=== PATIENT | female | born 1960 | race Caucasian/White ===

== ENCOUNTER → 2023-12-24 15:03 | Outpatient (REF) | payer MEDICARE, BC, SELFPAY | LOC: HWRCS 15:03 | PROVIDERS: ATTENDING PHYSICIAN Nurse Practitioner; FAMILY PHYSICIAN Family Medicine | DX: R60.0 Localized edema (principal) | CPT/HCPCS: 93306 ==

== ENCOUNTER → 2024-08-03 15:56 | Outpatient (REF) | payer MEDICARE, BC, SELFPAY | LOC: HWWDC 15:56 | PROVIDERS: ATTENDING PHYSICIAN Family Medicine | DX: Z12.31 Encounter for screening mammogram for malignant neoplasm of breast (principal) | CPT/HCPCS: 77063; 77067 ==

== ENCOUNTER 2024-12-22 17:25 | Inpatient (IN) | payer MEDICARE, BC, SELFPAY ==
--- NOTE | 2024-12-22 16:13 | CON.CAR ---
Addendum entered and electronically signed by Donovan Rhodes MD 12/22/24 18:02:
64 yo female with CAD/CABG 2020, Type 1 DM is admitted following high risk nuclear stress test. She experienced chest pressure during the stress test. She is currently chest pain/pressure free at rest. Exam with RRR, no murmurs, no edema. TnI
0.014. EKG: NSR, iRBBB, anterolateral ST depression.
Chest pain. ACS/unstable angina. Threat to life. With high risk nuclear stress test. LAD territory ischemia and TID. ASA 324 mg, heparin drip. Plan for cath in AM.
Original Note:
Consultation
Consultation Request
Date/Time Consultation Requested: 12/22/2024 16:10
Date/Time Consultation Performed: 12/22/2024 16:10
Requesting Provider: ER
Performing Provider: DAKOTA Helms for Dr. Rhodes
Reason for Consultation: Unstable angina
Medical History
-
Chief Complaint: Chest pain
History of Present Illness:
Farnaz Adams is a 64-year-old female (known to Dr. Garcia, her primary crime scene investigator), with coronary artery disease (CABG x 2, HUP [address] Manzo), ischemic cardiomyopathy (with recovered LVEF), type 1 diabetes mellitus, left lower
effusion status post VATS and pleurodesis (2020), and orthostasis who presented today for outpatient cardiac stress testing. Stress testing was prompted by reports of chest discomfort while walking her dog. It would resolve with rest but return if
she continued on her walk. She reported it was a heaviness that radiated into her jaw and she would start to feel nauseous. Today she completed 1 minute and 30 seconds of the Toro protocol and Lexiscan was administered. The stress ECG was
positive for ischemia with [address] depression in the inferior lateral leads and [address] elevation in aVR that was slow to resolve in recovery. Regarding her perfusion imaging, there was ischemia in the LAD territory. Transient ischemic
dilation was also present. She was sent to the emergency department for full evaluation.
Past Medical History
Past Medical History: CAD (CABG [2020]), CHF (ICM [recovered]), HTN (with orthostasis), Hypercholesterolemia and IDDM (Type I)
Past Surgical History: Appendectomy and Cardiac (CABG [Anais, 2020])
Social History
Tobacco: Non-Smoker
Personal: Single
Living: Alone
Family History
Family History: Reviewed & Not Pertinent
Allergies / Home Medications
Allergy/AdvReac Type Severity Reaction Status Date / Time
codeine [Codeine] Allergy abdominal Verified 10/26/20 14:25
cramping
shellfish derived Allergy Hives Verified 10/26/20 16:54
dust mites and mold Allergy congestion, Uncoded 10/26/20 14:25
sneezing
hay fever Allergy nasal Uncoded 10/26/20 14:25
congestion,
headache,
lightheadedness
perfumes Allergy headache Uncoded 10/26/20 14:25
�Medication �Instructions �Recorded �Confirmed �Type
aspirin 81 mg chewable tablet 81 mg PO DAILY Blood clot 10/26/20 10/26/20 History
prevention/tx
gabapentin 100 mg capsule 200 mg PO BID Pain 10/26/20 10/26/20 History
insulin aspart U-100 100 unit/mL 6 units SC TID Diabetes 10/26/20 10/26/20 History
subcutaneous solution (Novolog
U-100 Insulin aspart)
insulin glargine 100 unit/mL 16 units SC DAILY Diabetes 10/26/20 10/26/20 History
subcutaneous solution (Lantus
U-100 Insulin)
ntwynkrls-vxo-emdx fumarate 18 1 tab PO DAILY Supplement 10/26/20 10/26/20 History
mg-FA 600 mcg-vit K 40 mcg capsule
(Multi For Her)
omega 0-ndx-kup-fish oil 300 1 ea PO DAILY Supplement 10/26/20 10/26/20 History
mg-1,000 mg capsule (Fish Oil)
atorvastatin 80 mg tablet 80 mg PO QPM #30 tabs 10/28/20 Rx
clopidogrel 75 mg tablet 75 mg PO DAILY #90 tabs 10/28/20 Rx
furosemide 20 mg tablet 20 mg PO DAILY PRN weight gain or 10/28/20 Rx
SOB #30 tabs
lisinopril 2.5 mg tablet 2.5 mg PO DAILY #30 tabs 10/28/20 Rx
metoprolol succinate 25 mg 12.5 mg (1/2 x 25 mg) PO DAILY ##30 10/28/20 Rx
tablet,extended release 24 hr
nitroglycerin 0.4 mg sublingual 0.4 mg sublingual [id number] PRN 10/28/20 Rx
tablet sob, chest pain #25 tabs
pantoprazole 40 mg tablet,delayed 40 mg PO DAILY #30 tabs 10/28/20 Rx
release
Review of Systems
-
History Source: Patient
Constitutional: Fatigue
EENT: No Symptoms
Respiratory: No Symptoms
Cardiac: No Symptoms
Abdomen/GI: No Symptoms
: No Symptoms
Musculoskeletal: No Symptoms
Skin: No Symptoms
Neurological: No Symptoms
Endocrine: No Symptoms
Hematologic/Lymphatic: No Symptoms
Physical Exam
Physical Exam
General: Well Developed, Well Nourished, No Apparent Distress and Comfortable
HEENT: Normocephalic, Anicteric and Moist Mucous Membranes
Respiratory: Clear and Non Labored Respirations
Cardiac: S1/S2 and Regular Rhythm
Breast: Deferred by me
GI: Soft, Non Tender, Non Distended and Normal Bowel Sounds
Genito-urinary: No Costovertebral Tender
Musculoskeletal: No Clubbing
Skin: Warm and Dry
Neuro: AO x 3
Hematologic/Lymphatic: No Lymphadenopathy
Psych: Calm
Impression / Plan
-
I/P: 64F with coronary artery disease (CABG x 2, HUP [address] Manzo), ischemic cardiomyopathy (with recovered LVEF), type 1 diabetes mellitus, left lower effusion status post VATS and pleurodesis (2020), and orthostasis with high risk stress
test presents with unstable angina.
Primary Gas Treater: Dr. Garcia
Unstable angina with high risk nuclear stress test
-Stress imaging with medium sized severe in intensity completely reversible perfusion defect in the mid to distal anterior wall and apex promotions representative of significant ischemia along with a medium to large size partially reversible perfusion defect
in the basal to mid inferior wall consistent with infarction with staci-infarct ischemia. TID present.
-Stress ECG positive for ischemia with [address] depression in the inferolateral leads and [address] elevation in aVR
-Continue aspirin, start heparin drip
- Currently chest pain-free, will start nitroglycerin drip if chest pain returns
-Coronary angiography in a.m.
-Echocardiogram
Coronary artery disease
-She had a CABG x 2(SIFUENTES�dLAD, SVG�ramus), by Dr. Manzo in 2020 at [facility]
-RCA left on revascularized, intraoperative course complicated by acute hypotension and VF coming off of bypass
-Continue aspirin and statin, beta-daphne was weaned off for fatigue and orthostasis
Ischemic cardiomyopathy, with recovered LVEF
-Update TTE as above
HTN, with orthostasis, follow BP
Type I DM, managed by endocrine as an outpatient, per primary
Hyperlipidemia
-On rosuvastatin 40 mg, continue
-Fasting lipid panel in a.m.
Data Reviewed
-
Medical Tests (Nuc Med, Echo etc): Report Reviewed by me
Labs: Labs Reviewed by me
Old Records: Reviewed
[2024-12-22 16:14] VITALS: BP 164/68
[2024-12-22 16:29] VITALS: BMI 23.8
--- NOTE | 2024-12-22 16:38 | ED.GENMED ---
History of Present Illness
General
Chief Complaint: Chest Pain
Source: patient and physician
Time Seen by Provider: 12/22/24 16:23
History of Present Illness
History of Present Illness:
64-year-old female with past medical history of coronary artery disease, CHF, COPD, insulin-dependent diabetes presenting to the emergency department from the [facility] where she had a failed stress test earlier this afternoon, sent
to the emergency department to ultimately be admitted for heparin and plans for cardiac catheterization tomorrow. Patient states that over the last few weeks she wanted to go off of her beta-daphne due to episodes of hypotension and shortly after
being taken off her beta-daphne she started noticing anginal symptoms with mild exercise noting that when she would walk her dog she would often get a heavy sensation in her chest that would radiate to her neck accompanied with a sensation of
nausea. Patient states that the symptoms would all shortly dissipate following rest.
Past History
Past History
ED Past Medical History: CAD, CHF, COPD and IDDM
ED Past Surgical History: Appendectomy and Cardiac
Social History
Tobacco: Non-smoker
Alcohol: None
Drug: None
Personal:
Living: alone
Review of Systems
Review of Systems
All Other Systems: ROS reviewed and negative except as documented in HPI and ROS
Phy Exam
Physical Exam
Physical Exam:
GENERAL: Alert , in no apparent distress
HEAD: NCAT
EYE: conjunctiva clear
NECK: Supple
ENT: o/p clr, mmm.
CARDIAC: Regular rate and rhythm , Systolic murmur at the apex
LUNGS: Clear breath sounds bilaterally, no acute respiratory distress, no wheezes/rales/rhonchi
NEUROLOGICAL: Alert and oriented
SKIN: Warm and dry, skin intact.
MUSCULOSKELETAL: well perfused. no edema
PSYCH: Normal and appropriate interaction.
Scores
Heart Failure Risk
Heart Failure Risk Score: Not Applicable
Heart Score for Chest Pain Patients
STEMI patient?: No
History: Highly Suspicious
ECG: Significant ST-Depression
Age: >45 - <65 years
Risk Factors: >/= 3 Risk Factors or History of CAD
Troponin: </= Normal Limit
Heart Score for Chest Pain Patients: 7
Heart Score Risk: 72.7 % MACE over next 6 weeks
Withdrawal Assessment of Alcohol
Withdrawal Assessment Completed?: Not applicable
Course
Orders/Labs/Results
Orders:
Orders
12/22/24 Dinner
Cholesterol Lowering
At Your Request: Full Participation
Cholesterol Lowering: Sodium, 2 Gram
12/22/24 16:06
Electrocardiogram (*1) Urgent
Reason for Study: Chest Pain
EKG- Treatment ONCE
12/22/24 16:23
Heparin 4,000 units IV NOW STA
Heparin Protocol- PTT Orders As Directed
PTT per Heparin protocol: -Obtain CBC and baseline PTT - if not already collected.
-Obtain PTT 6 hours from start of infusion. Then, every 6 hours until 2 consecutive
PTT's are therapeutic. Then, PTT Daily.
-With each rate change, obtain PTT every 6 hours until 2 consecutive PTT's are
therapeutic. Then, PTT Daily.
Notify MD As Directed
Notify physician if: PTT is greater than or equal to 200.
12/22/24 16:28
Complete Blood Count/With Diff Urgent
Comprehensive Metabolic Panel Urgent
Hgba1c [Glycohemoglobin (HgbA1c)] Routine
PTT Urgent
Comment: ADDON
Prothrombin Time Urgent
12/22/24 16:29
Troponin I Urgent
12/22/24 16:30
Heparin 71586 Units/250 ml 25,000 units in 250 ml IV PER PROTOCOL
Weight to be used for heparin protocol in kilograms (kg):: 66.8
Protocol:: Cardiac Tx/Acute Coronary
PTT Goal Range to be used:: PTT 73 to 111 seconds
Order type:: Initial
INITIAL Infusion Dose (UNITS/KG/hr) & then follow protocol:: 12 units/kg/hr
Infusion Dose in UNITS/hr & then follow protocol (UNITS/hr):: 800
INFUSION RATE in mL/hr & then follow protocol (mL/hr):: 8
PTT less than or equal to 64 seconds:: Increase rate by 200 units/hr (+ 2 mL/hr)
PTT 64.1 to 72.9 seconds:: Increase rate by 100 units/hr (+ 1 mL/hr)
PTT 73 to 111 seconds:: Target Range. No change in rate.
PTT 111.1 to 130.9 seconds:: Decrease rate by 100 units/hr (- 1 mL/hr)
PTT 131 to 199.9 seconds:: HOLD for 1 hr. Then decrease rate by 200 units/hr (- 2 mL/hr)
PTT greater than or equal to 200 seconds:: HOLD for 2 hrs & Notify Provider. Then decrease by 200 units/hr (-
2 mL/hr)
Lab follow-up:: Each change, PTT q6h until 2 consecutive are therapeutic. Then PTT
daily.
12/22/24 16:50
Nitroglycerin Sublingual [Nitrostat (Sublingual)] 0.4 mg SL [id number] PRN
12/22/24 16:56
Admit/Transfer Patient As Directed
Co-Sign Provider:
Level of Care: Inpatient admission
Assign to:: IVU
Physician / Group: arik
Diagnosis: acs
Reason for Hospitalization: acs
Expected length of stay greater than two midnights?: Yes
ELOS- Estimated Length of Stay in days: 2
I certify the patient meets the requirements for IP care: Yes
PRN Pain Medication Management As Directed
May give lesser potent ordered pain med per pt: Yes
preference::
Protocol:: Medication orders for pain may be administered in a
manner that supports deferring to patient preference
when the pt is:
- Requesting an ordered lesser potent pain medication.
Least to most potent pain medications are defined
as: acetaminophen < NSAID < tramadol < opioids
(morphine, oxycodone, hydromorphone).
- Requesting a lesser dose of the same medication IF
ORDERED.
- Requesting a less intrusive route of administration
if both routes are prescribed by the provider (PO <
IV).
12/22/24 16:57
Code Status As Directed
Resuscitation Status: Full Code
12/22/24 18:23
Troponin I Q6H
12/22/24 18:23
VTE Contraindication Routine
VTE Mechanical Device Contraindication: Medical Contraindication
Pharmocologic Contraindication: Medical Contraindication
Activity As Directed
Activity Level: As Tolerated
Vital Signs As Directed
Frequency: Per unit guidelines
12/23/24 00:23
Troponin I Q6H
12/23/24 06:00
Echo 2D MMode Color/Doppler Routine
Reason for Study: Unstable angina
NPO
Allow oral meds: Yes
Allow clear liquids: No
12/23/24 06:23
Troponin I Q6H
12/24/24 06:00
Complete Blood Count/No Diff Q2D
Comment: Notify MD if platelet count is <130,000 or decreases by 50% from baseline
12/26/24 06:00
Complete Blood Count/No Diff Q2D
Comment: Notify MD if platelet count is <130,000 or decreases by 50% from baseline
12/28/24 06:00
Complete Blood Count/No Diff Q2D
Comment: Notify MD if platelet count is <130,000 or decreases by 50% from baseline
12/30/24 06:00
Complete Blood Count/No Diff Q2D
Comment: Notify MD if platelet count is <130,000 or decreases by 50% from baseline
01/01/25 06:00
Complete Blood Count/No Diff Q2D
Comment: Notify MD if platelet count is <130,000 or decreases by 50% from baseline
01/03/25 06:00
Complete Blood Count/No Diff Q2D
Comment: Notify MD if platelet count is <130,000 or decreases by 50% from baseline
01/05/25 06:00
Complete Blood Count/No Diff Q2D
Comment: Notify MD if platelet count is <130,000 or decreases by 50% from baseline
01/07/25 06:00
Complete Blood Count/No Diff Q2D
Comment: Notify MD if platelet count is <130,000 or decreases by 50% from baseline
Abnormal Lab Results
12/22/24
16:28
Absolute Neuts (auto) 7.4 H 10^3/uL
(1.4-6.5)
Neutrophils % 78.6 H %
(42.2-75.2)
Lymphocytes % 13.4 L %
(20.5-51.1)
BUN 20 H mg/dl
(7-17)
Glucose 222 H mg/dl
(70-99)
AST 42 H U/L
(14-36)
12/22/24 16:28
12/22/24 16:28
Vital Signs
Initial and Last Documented VS:
Initial Vital Signs
Temp Pulse Pulse Ox
98.4 F 74 99
12/22/24 16:08 12/22/24 16:08 12/22/24 16:08
Last Documented Vital Signs
Temp Pulse Resp BP Pulse Ox
98.4 F 77 20 135/62 98
12/22/24 19:15 12/22/24 19:15 12/22/24 19:15 12/22/24 18:32 12/22/24 19:15
MDM/Problems Addressed
Differential Diagnosis Includes:
angina, NSTEMI/STEMI, less concern for PE, no concern for infection
MDM/Problems Addressed:
64-year-old female presenting to the ER for evaluation after failing stress test earlier this afternoon. Has been having anginal symptoms over the last few weeks. Chest pain-free here. Received 4 tablets of [address] to the
hospital via EMS. Per cardiology recommendation will initiate heparin now. Plan to admit to hospitalist team and cardiac catheterization tomorrow morning.
Chronic conditions affecting care: CAD
Acute Exacerbation and/or Progression of Chronic Illness: CAD
*Pulse Oximetry
Patient hypoxic: no
*EKG
Heart Rate: 71
Rate: normal
Rhythm: sinus
Ischemia: ST depression (Inferior leads, V4 through V6)
*Retanned Le[employer] Roller Interpretation
Rate: normal
Rhythm: sinus
*Critical Care Note
Total Time (30-74mins, 75-104mins- exclusive of procedures): 30
comment:
Critical care statement: A total of 30 minutes of critical care time was provided for this patient. This includes management of unstable vital signs, evaluation of the patient at bedside, reviewing the patient's pertinent medical records, discussion
with consultants, review of old EKGs and review of pertinent medical records. This time with separate from time utilized to perform the aforementioned documented procedures
Data Reviewed
Review of Other/Old Records Reveals: Labs, Records and Testing
Patient Management
Discussion with other providers: Hospitalist and E Learning Developer
Escalation/DeEscalation of care consider admission/obs:
Hospitalist team is aware and accepts for continued evaluation and treatment. Cardiology in the ER to evaluate the patient and place consultation orders/help with treatment planning
ED Attending Note
-
Portions of this chart may have been created with voice recognition software.� Occasional wrong word or��sound alike� substitutions may have occurred due to the inherent limitations of voice recognition software.
Discharge Plan
Departure
Patient Disposition: Admit
Date of Disposition: 12/22/24
Time of Disposition: 16:40
Presentation/result/management discussed w/ accepting MD/DO: Hospitalist
Discharge Problem:
Angina pectoris
Interventions
Interventions:
*Risk Screen - Suicide Last Done: 12/22/24 17:00
*General Assessment Last Done: 12/22/24 16:24
*Neglect/Abuse Screening Last Done: 12/22/24 17:00
*ED- Fall Risk Assessment Last Done: 12/22/24 17:00
*ED COVID-19 Vaccine History Last Done: 12/22/24 17:00
*Nursing Disposition Last Done: 12/22/24 18:30
ED- Cardiac Assessment Last Done: 12/22/24 16:55
Discharge Date and Time
Discharge Date/Time: 12/22/24 18:31
[2024-12-22] MEDS: HEPARIN 4000 UNITS IV (16:43)
[2024-12-22 16:44] LABS: % Basophils 0.4 % (0-2); % Immature Granulocytes 0.2 % (0-0.5); % Lymphocytes 13.4 % (20.5-51.1); % Monocytes 6.4 % (1.7-9.3); % Neutrophils 78.6 % (42.2-75.2); Absolute Eosinophils 0.1 10^3/uL (0-0.7); Absolute Lymphocytes 1.3 10^3/uL (1.2-3.4); Absolute Monocytes 0.6 10^3/uL (0.1-0.6); Absolute Neutrophils 7.4 10^3/uL (1.4-6.5); Hematocrit 38.8 % (37.0-47.0); Hemoglobin 12.8 g/dL (12.0-16.0); Mean Corpuscular Hgb 29.3 pg (27.0-31.0); Mean Corpuscular Volume 88.8 fL (81.0-99.0); Mean Platelet Volume 9.8 fL (7.4-10.4); Nucleated Red Blood Cells % 0 %; Platelet Count 213 10^3/uL (130-400); Red Blood Cell Count 4.37 10^6/uL (4.20-5.40); Red Cell Dist. Width 12.5 % (11.5-14.5); White Blood Cell Count 9.4 10^3/uL (4.8-10.8)
[2024-12-22] MEDS: HEPARIN 25000 UNITS/250 ML IV (16:44)
[2024-12-22 16:47] LABS: INR 0.91; PT 12.7 Sec (11.4-14.6)
[2024-12-22 16:49] LABS: ALT (SGPT) 32 U/L (0-35); AST (SGOT) 42 U/L (14-36); Albumin 4.1 g/dl (3.5-5.0); Alkaline Phosphatase 85 U/L (38-126); Blood Urea Nitrogen 20 mg/dl (7-17); Calcium 9.3 mg/dl (8.4-10.2); Carbon Dioxide 26 mmol/L (22-30); Chloride 107 mmol/L (98-107); Estimated Creatinine Clearance 90 ml/min; Glucose 222 mg/dl (70-99); Potassium 4.1 mmol/L (3.5-5.1); Sodium 139 mmol/L (135-145); Total Bilirubin 0.8 mg/dl (0.2-1.3); Total Protein 7.1 g/dl (6.3-8.2); eGFR > 60.00
--- NOTE | 2024-12-22 16:59 | HPS.HSE ---
Addendum entered and electronically signed by Sean Johnson MD 12/22/24 17:40:
Patient has insulin pump. Continue.
Original Note:
Family Physician
-
Family Physician:
Chief Complaint
-
Allergies
Allergy/AdvReac Type Severity Reaction Status Date / Time
codeine [Codeine] Allergy abdominal Verified 12/22/24 16:30
cramping
house dust mite Allergy congestion, Verified 12/22/24 17:02
sneezing
mold Allergy congestion, Verified 12/22/24 17:02
sneezing
pollen extracts Allergy nasal Verified 12/22/24 17:02
congestion,
headache,
lightheadedness
shellfish derived Allergy Hives Verified 12/22/24 16:30
tree and shrub pollen Allergy nasal Verified 12/22/24 17:02
congestion,
headache,
lightheadedness
perfumes Allergy headache Uncoded 12/22/24 16:30
Home Medications
aspirin 81 mg chewable tablet 81 mg PO DAILY Blood clot prevention/tx 10/26/20
gabapentin 100 mg capsule 400 mg PO BID Pain 10/26/20
insulin aspart U-100 100 unit/mL subcutaneous solution (Novolog U-100 Insulin aspart) units SC TID Diabetes 10/26/20
insulin glargine 100 unit/mL subcutaneous solution (Lantus U-100 Insulin) 16 units SC .DAILYINAM Diabetes 10/26/20
mdznchyzr-ltt-rexy fumarate 18 mg-FA 600 mcg-vit K 40 mcg capsule (Multi For Her) 1 tab PO DAILY Supplement 10/26/20
omega 9-jtl-bqs-fish oil 300 mg-1,000 mg capsule (Fish Oil) 1 ea PO DAILY Supplement 10/26/20
furosemide 20 mg tablet 20 mg PO DAILY PRN weight gain or SOB #30 tabs 10/28/20
nitroglycerin 0.4 mg sublingual tablet 0.4 mg sublingual [id number] PRN sob, chest pain #25 tabs 10/28/20
pantoprazole 40 mg tablet,delayed release 40 mg PO DAILY #30 tabs 10/28/20
acetaminophen 325 mg tablet (Tylenol) 325 mg PO Q4H PRN pain 12/22/24
metoprolol succinate 25 mg tablet,extended release 24 hr 12.5 mg PO HS 12/22/24
midodrine 2.5 mg tablet 2.5 mg PO ONCE PRN low bp 12/22/24
rosuvastatin 40 mg tablet 40 mg PO DAILY 12/22/24
tramadol 50 mg tablet 50 mg PO DAILY PRN pain 12/22/24
History of Present Illness
64-year-old female past medical history of ischemic cardiomyopathy, multivessel CAD status post CABG, type 1 diabetes, lumbar disc disease status post surgery, peripheral neuropathy, restless leg syndrome, GERD, COPD, presenting with failed stress
test earlier this afternoon. She developed chest pressure with radiation up to her neck and required medication to reverse the vasodilator. Sent to the emergency room to be admitted for plans for cardiac catheterization tomorrow. Denies symptoms
currently.
She was getting chest pressure with exertion few times over the past several months which prompted stress test. She previously stopped beta-daphne due to hypotension restarted a few months ago. Continues to have low blood pressure occasionally
with beta-daphne.
Denies smoking. Rarely drinks alcohol.
Medical History
Past Medical History
Past Medical History: Reports Other ( ischemic cardiomyopathy, multivessel CAD, type 1 diabetes, lumbar disc disease status post surgery, peripheral neuropathy, restless leg syndrome, GERD, COPD)
Past Surgical History: Reports None
Social History
Tobacco: Non-smoker
Alcohol: None
Drug: None
Family History
Family History: Not pertinent
Allergies / Home Medications
Allergies reflects when Allergies were last updated in [employer].
Home Medications with original date entered in [employer]
Allergy/Medication List:
Allergies
Allergy/AdvReac Type Severity Reaction Status Date / Time
codeine [Codeine] Allergy abdominal Verified 12/22/24 16:30
cramping
shellfish derived Allergy Hives Verified 12/22/24 16:30
dust mites and mold Allergy congestion, Uncoded 12/22/24 16:30
sneezing
hay fever Allergy nasal Uncoded 12/22/24 16:30
congestion,
headache,
lightheadedness
perfumes Allergy headache Uncoded 12/22/24 16:30
Home Medications
aspirin 81 mg chewable tablet 81 mg PO DAILY Blood clot prevention/tx 10/26/20
gabapentin 100 mg capsule 200 mg PO BID Pain 10/26/20
insulin aspart U-100 100 unit/mL subcutaneous solution (Novolog U-100 Insulin aspart) 6 units SC TID Diabetes 10/26/20
insulin glargine 100 unit/mL subcutaneous solution (Lantus U-100 Insulin) 16 units SC DAILY Diabetes 10/26/20
qxqwcixjt-yuv-fxiz fumarate 18 mg-FA 600 mcg-vit K 40 mcg capsule (Multi For Her) 1 tab PO DAILY Supplement 10/26/20
omega 3-vqq-thi-fish oil 300 mg-1,000 mg capsule (Fish Oil) 1 ea PO DAILY Supplement 10/26/20
atorvastatin 80 mg tablet 80 mg PO QPM #30 tabs 10/28/20
clopidogrel 75 mg tablet 75 mg PO DAILY #90 tabs 10/28/20
furosemide 20 mg tablet 20 mg PO DAILY PRN weight gain or SOB #30 tabs 10/28/20
lisinopril 2.5 mg tablet 2.5 mg PO DAILY #30 tabs 10/28/20
metoprolol succinate 25 mg tablet,extended release 24 hr 12.5 mg (1/2 x 25 mg) PO DAILY ##30 10/28/20
nitroglycerin 0.4 mg sublingual tablet 0.4 mg sublingual [id number] PRN sob, chest pain #25 tabs 10/28/20
pantoprazole 40 mg tablet,delayed release 40 mg PO DAILY #30 tabs 10/28/20
Review of Systems
-
History Source: Patient
A 12 point ROS was completed and negative except as noted: Yes
Constitutional: Reports No Symptoms
EENT: Reports No Symptoms
Respiratory: Reports See HPI
Cardiac: Reports See HPI
Abdomen/GI: Reports No Symptoms
: Reports No Symptoms
Musculoskeletal: Reports No Symptoms
Skin: Reports No Symptoms
Neurological: Reports No Symptoms
Endocrine: Reports No Symptoms
Hematologic/Lymphatic: Reports No Symptoms
Psych: Reports No Symptoms
Physical Exam
Vital Signs
Vital Signs
Temp Pulse Resp BP Pulse Ox
98.4 F 73 15 164/68 100
12/22/24 16:08 12/22/24 16:30 12/22/24 16:30 12/22/24 16:14 12/22/24 16:30
Physical Exam
General: Well Developed, Well Nourished and No Apparent Distress
HEENT: NormoCephalic, Moist mucous membranes and Atraumatic
Respiratory: Clear
Cardiac: S1/S2 and Regular Rhythm; No Murmur or Rub
GI: Soft, Non Tender, Non Distended and Normal Bowel Sounds; No Organomegaly
Rectal: Deferred by Provider
Musculoskeletal: No Clubbing, No Cyanosis and No Edema
Skin: No Rash
Neuro: Nonfocal/grossly intact
Laboratory Results
-
12/22/24 16:28
12/22/24 16:28
Laboratory Results
PT 12.7 Sec (11.4-14.6) 12/22/24 16:28
INR 0.91 12/22/24 16:28
Total Bilirubin 0.8 mg/dl (0.2-1.3) 12/22/24 16:28
AST 42 U/L (14-36) H 12/22/24 16:28
ALT 32 U/L (0-35) 12/22/24 16:28
Alkaline Phosphatase 85 U/L (38-126) 12/22/24 16:28
Data Reviewed
-
Lab Data: Labs Reviewed by me
Old Records: Reviewed
Impression/Plan
-
IMPRESSION:
PLAN:
# Stable angina
# History of multivessel CAD s/p CABG 2020
-EKG shows normal sinus rhythm, incomplete right bundle branch block, T wave inversions in lateral leads
-No chest pain currently
- Continue aspirin
-Check A1c and lipid panel,
- Heparin drip
-Check echo
- Cardiology consulted
- N.p.o. past midnight for possible cardiac catheterization tomorrow
- As needed nitroglycerin for chest pain as needed
Ischemic cardiomyopathy
- Continue lisinopril
Type 1 diabetes
- Continue Lantus 16 units,
- Insulin sliding scale
Lumbar disc disease status post surgery
Peripheral neuropathy
- Continue gabapentin
Restless leg syndrome
GERD
- Continue Protonix
COPD
Full code
DVT prophylaxis�heparin drip
Cardiac diet, n.p.o. past midnight
[2024-12-22 17:00] VITALS: BP 166/65
[2024-12-22 17:01] LABS: Troponin I 0.014 ng/ml
[2024-12-22 18:00] VITALS: BP 142/83
--- NOTE | 2024-12-22 18:06 | EDRN ---
pt arrives to ER from home with an existing insulin pump and dextrose monitor attached to her person. per admitting hospitalist Dr Johnson verbal order, the pt can continue managing her own insulin pump while in . The pt stated she only takes
Novolog and Lantus SUBQ insulin IF HER INSULIN PUMP FAILS. otherwise her insulin pump stays on 25/02.
[2024-12-22 18:26] LABS: APTT 29.3 Sec (23.4-35.0)
[2024-12-22 18:32] VITALS: BP 135/62
[2024-12-22 18:39] VITALS: BMI 23.6
[2024-12-22 18:52] LABS: Glucose - Point of Care 205 mg/dl (70-99)
--- NOTE | 2024-12-22 19:27 | PTCARENOTE ---
Received pt from the ED at 1830. Pt on a heparin drip at 8 ml/hr, that was started in the ED. VSS. Pt denies any chest pain. Oriented pt to pt's room and IVU. Discussed plan for cardiac cath in am and NPO after midnight. Pt w/ own insulin
pump. Bedside accu check done, documentation of pt's blood sugar checks and insulin dosings on bedside worksheet.
[2024-12-22 20:20] VITALS: BP 130/60
[2024-12-22 21:02] VITALS: BMI 23.6
[2024-12-22 21:08] LABS: Troponin I 0.016 ng/ml
[2024-12-22 22:48] VITALS: BP 128/52
[2024-12-22 23:04] LABS: Glucose - Point of Care 272 mg/dl (70-99)
[2024-12-22] MEDS: PATIENT'S OWN INSULIN PUMP 0.75 UNITS SC (23:22)
[2024-12-22] MEDS: CRESTOR 40 MG PO (23:23)
[2024-12-22] MEDS: TOPROL XL 12.5 MG PO (23:23)
[2024-12-22] MEDS: NEURONTIN 300 MG PO (23:23)
[2024-12-23 00:10] LABS: APTT 98.3 Sec (23.4-35.0)
[2024-12-23 00:18] LABS: Troponin I 0.018 ng/ml
--- NOTE | 2024-12-23 00:29 | PTCARENOTE ---
Assumed care of the pt @ 1900. Pt is AAOx3 SR on the monitor VSS denies CP. Heparin gtt infusing @ 800 units/HR. Plan of care updated with pt. Call cui within reach.
[2024-12-23 02:57] VITALS: BP 120/54
[2024-12-23 06:00] VITALS: BMI 23.3
[2024-12-23 06:17] LABS: APTT 80.2 Sec (23.4-35.0)
[2024-12-23 06:27] LABS: HDL Cholesterol 67 mg/dl; LDL Cholesterol, Calculated 50 mg/dl; Total Cholesterol 127 mg/dl (50-199); Triglyceride 54 mg/dl (10-149); Very Low Density Lipoprotein 10 mg/dl (0-30)
[2024-12-23 06:39] LABS: Troponin I 0.021 ng/ml
--- NOTE | 2024-12-23 07:34 | W.PN.HOSP.TC ---
Today's Communication/Plan
-
NPO after midnight for cardiac cath tomorrow
Continue Heparin Drip
Assessment / Plan
Assessment / Plan
Physical Exam
General: Well Developed, Well Nourished and No Apparent Distress
HEENT: NormoCephalic, Moist mucous membranes and Atraumatic
Respiratory: Clear
Cardiac: S1/S2 and Regular Rhythm; No Murmur or Rub
GI: Soft, Non Tender, Non Distended and Normal Bowel Sounds
Musculoskeletal: No Cyanosis and No Edema
Skin: Warm. Dry.
Neuro: Nonfocal/grossly intact
Assessment/Plan
64-year-old female past medical history of ischemic cardiomyopathy, multivessel CAD status post CABG, type 1 diabetes, lumbar disc disease status post surgery, peripheral neuropathy, restless leg syndrome, GERD, COPD, presenting with failed stress
test earlier this afternoon. She developed chest pressure with radiation up to her neck and required medication to reverse the vasodilator. Sent to the emergency room to be admitted for plans for cardiac catheterization tomorrow. Denies symptoms
currently. She was getting chest pressure with exertion few times over the past several months which prompted stress test. She previously stopped beta-daphne due to hypotension restarted a few months ago. Continues to have low blood pressure
occasionally with beta-daphne. Denies smoking. Rarely drinks alcohol. Patient has insulin pump. Continue.
# Stable angina
# History of multivessel CAD s/p CABG [address] Manzo
# Known nonrevascularized RCA
- Patient failed stress test 12/22/24 and started on heparin drip
- Continue aspirin
- HbA1c 7.8% and lipid panel LDL 50
- Continue Heparin drip
- Echo with normal left ventricular systolic function; left ventricular ejection fraction 50-55%; basal to mid inferior hypokinesis (which is new); no significant valve disease.
- Cardiology consulted
- N.p.o. past midnight for cardiac catheterization tomorrow
- As needed nitroglycerin for chest pain as needed
Ischemic cardiomyopathy
- Continue lisinopril
Type 1 diabetes
- On insulin pump
- Appreciate Diabetes PULP OPERATOR
Lumbar disc disease status post surgery
Peripheral neuropathy
- Continue gabapentin
Restless leg syndrome
GERD
- Continue Protonix
COPD
Full code
DVT prophylaxis�heparin drip
Cardiac diet, n.p.o. past midnight
Anticipated Discharge: > 48 hours
Subjective/Interval History
-
Date of Service: December 23, 2024
Patient was seen and examined. She denied any chest pain or shortness of breath.
Objective Data
-
Labs:
Laboratory Results
12/22/24 12/23/24
23:40 05:38
APTT 98.3 H 80.2 H
Vital Signs:
Vital Signs
Temp Pulse Resp BP Pulse Ox
98.8 F 67 16 120/54 99
12/23/24 02:58 12/23/24 02:58 12/23/24 02:58 12/23/24 02:57 12/23/24 02:58
[2024-12-23] MEDS: LOW STRENGTH ASPIRIN 81 MG PO (08:14)
--- NOTE | 2024-12-23 08:14 | PN.DE.MGMTRT ---
Insulin Management
- -
12/23/2024 Diabetes Management Consult - Patient with insulin pump
Patient admitted 12/22 after failed stress test @ [facility], c/o chest pain. PMH CAD, CHF, COPD, diabetes. Prior to admission was using OmniPod 5 with DexCom insulin pump.
Patien tis awake alert and oriented resting in bed able to discuss diabetes management. History of diabetes 47 years, sees Dr. Maikol mcgill @ [facility]. Patient is able to continue to use pump while inpatient, in auto mode. Pump settings:
Basal .6 for 24 hours, 14.4 units total
I:CHO ratio 8.7
Sensitivity 50
Active insulin 4.5 hours.
Discussed with nurse
Will follow
Diabetes History
- -
Type of Diabetes: 1
Pre-Admission Diabetes Regimen
12/22/24
16:28
Creatinine 0.6
Insulin Pump Settings
IP Diabetes Regimen
12/22/24 12/22/24 12/22/24
16:28 18:50 23:03
Glucose 222 H
POC Glucose 205 H 272 H
Patient Education
[2024-12-23] MEDS: NEURONTIN 300 MG PO ×2 (08:15→21:19)
[2024-12-23] MEDS: PROTONIX 40 MG PO (08:15)
[2024-12-23] MEDS: THERAGRAN 1 TABLET PO (08:15)
[2024-12-23 08:16] VITALS: BP 116/57
[2024-12-23 08:26] LABS: Glucose - Point of Care 115 mg/dl (70-99)
--- NOTE | 2024-12-23 08:29 | W.PN.CD ---
Today's Communication / Plan
-
Patient with new exertional angina. Known history of multivessel coronary artery disease with coronary artery bypass grafting x [address] Manzo. Patient with known nonrevascularized RCA.
Stable overnight without angina
Continue IV heparin
Plan for cardiac catheterization. This includes coronary angiography and imaging of grafts. Per notes h/o CABG x 2(SIFUENTES�dLAD, SVG�ramus)
Impression / Plan
-
I/P: 64F with coronary artery disease (CABG x 2, [facility] [address] Manzo), ischemic cardiomyopathy (with recovered LVEF), type 1 diabetes mellitus, left lower effusion status post VATS and pleurodesis (2020), and orthostasis with high risk stress
test presents with unstable angina.
Primary Registered Respiratory Therapist: Dr. Garcia
Unstable angina with high risk nuclear stress test
- known CAD /CABG and nonrevascularized RCA
-Stress imaging with medium sized severe in intensity completely reversible perfusion defect in the mid to distal anterior wall and apex retail representative of significant ischemia along with a medium to large size partially reversible perfusion defect
in the basal to mid inferior wall consistent with infarction with staci-infarct ischemia. TID present.
-Stress ECG positive for ischemia
-Continue aspirin, start heparin drip
-Coronary angiography 12/23/24
-Echocardiogram
Coronary artery disease
-She had a CABG x 2(SIFUENTES�dLAD, SVG�ramus), by Dr. Manzo in 2020 at [facility]
-RCA left on revascularized, intraoperative course complicated by acute hypotension and VF coming off of bypass
-Continue aspirin and statin, beta-daphne was weaned off for fatigue and orthostasis
Ischemic cardiomyopathy, with recovered LVEF
-Update TTE as above
HTN, with orthostasis, follow BP
Type I DM, managed by endocrine as an outpatient, per primary
Hyperlipidemia
-On rosuvastatin 40 mg, continue
-Fasting lipid panel in a.m.
Physical Exam
Vital Signs/Labs
Vital Signs
Temp Pulse Resp BP Pulse Ox
97.8 F 67 16 120/54 100
12/23/24 08:17 12/23/24 02:58 12/23/24 08:17 12/23/24 02:57 12/23/24 08:17
12/22/24 12/23/24 12/24/24
06:59 06:59 06:59
Actual Weight 65.4 kg
12/22/24 16:28
12/22/24 16:28
PT 12.7 Sec (11.4-14.6) 12/22/24 16:28
INR 0.91 12/22/24 16:28
APTT 80.2 Sec (23.4-35.0) H 12/23/24 05:38
Triglycerides 54 mg/dl (10-149) 12/23/24 05:38
LDL Cholesterol, Calc 50 mg/dl 12/23/24 05:38
VLDL Cholesterol, Calc 10 mg/dl (0-30) 12/23/24 05:38
HDL Cholesterol 67 mg/dl 12/23/24 05:38
LAB Results
12/22/24 12/22/24 12/22/24
16:29 20:32 23:40
Troponin I 0.014 0.016 0.018
12/23/24
05:38
Troponin I 0.021
Physical Exam
Constitutional: No acute distress
Cardiovascular: Rhythm & rate is regular
Respiratory: Wheeze Absent and Rhonchi Absent
GI: Soft
Other: Other (no edema)
Data Reviewed
-
Date of Service: December 23, 2024
Medical Decision Making: Reviewed Test Results
EKG: Report Reviewed by me
Medical Tests (PFT, Pathology etc): Report Reviewed by me
Labs: Labs Reviewed by me
[2024-12-23] MEDS: PT'S OWN INSULIN PUMP - NovoLOG SC ×4 (08:35→22:53)
[2024-12-23 08:52] LABS: Glycohemoglobin (HgbA1c) 7.8 % (4.0-5.6)
[2024-12-23] MEDS: PATIENT'S OWN INSULIN PUMP SC (09:31)
[2024-12-23 12:46] LABS: Glucose - Point of Care 132 mg/dl (70-99)
[2024-12-23 13:33] VITALS: BP 134/57
--- NOTE | 2024-12-23 13:59 | CM ---
CM following for DC planning needs.
Met w/ patient at bedside to complete initial assessment. Mother, brother presented while I was there as well.
Pt. resides alone in a private ranch style home. She is functionally indep. w/ ADLs, mobility without the use of any assisted device.
Pt. does have a SPC in the home but does not utilize.
Pt. 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
Pt. has RX plan and uses [facility] in [place] for prescription needs.
Antic. DC plan is for home, no needs.
CM to follow closely.
[2024-12-23 16:11] VITALS: BP 112/55
--- NOTE | 2024-12-23 17:20 | PTCARENOTE ---
Pt cath cancelled for today due to emergent caths coming in to quality assurance qa lab technician, she will be going for cardiac cath tomorrow.
--- NOTE | 2024-12-23 17:42 | W.PN.UPDATE ---
Addendum entered and electronically signed by Adam Thomas MD 12/23/24 17:50:
procedure and risks reviewed and consent signed.
Original Note:
Update Note
Progress Note Update
Patient reassessed. Currently comfortable no issues with chest discomfort today. Patient's cardiac catheterization being rescheduled for tomorrow. Multiple emergencies and multiple STMIs in Photo Equipment Technician have impacted the schedule and after further
discussion with patient and interventional cardiology decision was made to proceed with cardiac catheterization tomorrow
[2024-12-23 18:11] LABS: Glucose - Point of Care 110 mg/dl (70-99)
[2024-12-23] MEDS: CRESTOR 40 MG PO (18:15)
[2024-12-23 21:06] VITALS: BP 124/69
[2024-12-23 21:13] LABS: Glucose - Point of Care 170 mg/dl (70-99)
[2024-12-23] MEDS: TOPROL XL 12.5 MG PO (21:19)
[2024-12-23 22:47] VITALS: BP 102/60
--- NOTE | 2024-12-23 23:48 | PTCARENOTE ---
Assumed care of the pt @ 1900. Pt up in chair talking with a friend. SR on the monitor VSS Hep gtt infusing 800 units/HR. Denies CP NPO after mn for Cath procedure tomorrow. Call cui within reach.
[2024-12-24] VITALS (15 sets, daily range): BP systolic 90–156; BP diastolic 40–106; PULSE 70; BMI 23.2
[2024-12-24] MEDS: HEPARIN 25000 UNITS/250 ML IV (00:15)
[2024-12-24 05:09] LABS: Hematocrit 35.4 % (37.0-47.0); Hemoglobin 11.7 g/dL (12.0-16.0); Mean Corp Hgb Conc. 33.1 g/dL (33.0-37.0); Mean Corpuscular Hgb 29.4 pg (27.0-31.0); Mean Corpuscular Volume 88.9 fL (81.0-99.0); Mean Platelet Volume 9.7 fL (7.4-10.4); Platelet Count 200 10^3/uL (130-400); Red Blood Cell Count 3.98 10^6/uL (4.20-5.40); Red Cell Dist. Width 12.5 % (11.5-14.5); White Blood Cell Count 6.3 10^3/uL (4.8-10.8)
[2024-12-24 05:24] LABS: APTT 103.9 Sec (23.4-35.0)
[2024-12-24 05:40] LABS: Troponin I 0.014 ng/ml
[2024-12-24 05:47] LABS: ALT (SGPT) 24 U/L (0-35); AST (SGOT) 31 U/L (14-36); Albumin 3.6 g/dl (3.5-5.0); Alkaline Phosphatase 67 U/L (38-126); Blood Urea Nitrogen 26 mg/dl (7-17); Calcium 9.7 mg/dl (8.4-10.2); Carbon Dioxide 26 mmol/L (22-30); Chloride 110 mmol/L (98-107); Estimated Creatinine Clearance 67 ml/min; Glucose 115 mg/dl (70-99); Magnesium 2.2 mg/dl (1.6-2.3); Potassium 3.7 mmol/L (3.5-5.1); Sodium 140 mmol/L (135-145); Total Bilirubin 0.5 mg/dl (0.2-1.3); Total Protein 6.4 g/dl (6.3-8.2); eGFR > 60.00
--- NOTE | 2024-12-24 06:48 | W.PN.CD ---
Today's Communication / Plan
-
Cardiac catheterization today to clarify coronary anatomy.
Impression / Plan
-
I/P: 64F with coronary artery disease s/p CABG x 2 (SIFUENTES to LAD, SVG to RI) @ [facility] [address] Manzo, ischemic cardiomyopathy (with recovered LVEF), type 1 diabetes mellitus, left lower effusion status post VATS and pleurodesis (2020), and
orthostasis admitted after high risk stress test (chest pressure during test, LAD ischemia/TIA).
Primary Regional Agronomist: Dr. Garcia
#Unstable angina with high risk nuclear stress test
-Acute.
-Known CAD /CABG and nonrevascularized RCA.
-Stress imaging with medium sized severe in intensity completely reversible perfusion defect in the mid to distal anterior wall and apex sales development representative of significant ischemia along with a medium to large size partially reversible perfusion defect
in the basal to mid inferior wall consistent with infarction with staci-infarct ischemia. TID present.
-Stress ECG positive for ischemia.
-Troponin negative.
-Echocardiogram shows new inferior hypokinesis, new since 2023.
-Plan for cardiac catheterization/ad hoc PCI.
#Coronary artery disease
-Chronic, progressive.
-She had a CABG x 2(SIFUENTES�dLAD, SVG�ramus), by Dr. Manzo in 2020 at [facility].
-RCA left un-revascularized, intraoperative course complicated by acute hypotension and VF coming off of bypass.
-Continue aspirin and statin, beta-daphne was weaned off for fatigue and orthostasis.
-Cath as above.
#Ischemic cardiomyopathy with recovered LVEF
-Chronic.
-Updated TTE shows new inferior hypokinesis with preserved systolic function.
#HTN with orthostasis
-Chronic, stable.
-Follow BP.
-Remains on metoprolol. Currently not requiring midodrine.
#Type I DM
-Chronic, stable.
-Managed by endocrine as an outpatient, per primary.
#Hyperlipidemia
-Chronic, stable.
-Total cholesterol = 127, LDL = 50, HDL = 67, Triglycerides = 54.
-Continue rosuvastatin 40 mg.
Subjective/Interval History:
Chest pain free overnight.
DATA:
Regadenoson SPECT, 12/22/2024:
CONCLUSION:
Markedly abnormal study highly suggestive of significant multivessel coronary artery disease.
The Stress ECG is Positive for Ischemia after Lexiscan administration with 2.[address] depression in the inferolateral leads and 1.[address] elevation in aVR, slow to resolve in recovery.
Patient experienced persistent chest pressure (6/10) with Lexiscan and nausea, replicating testing indication.
There was a medium-sized severe in intensity, completely reversible perfusion defect in the mid to distal anterior wall and apex sales development representative of significant ischemia. There was also a medium to large size, severe in intensity, partially reversible
perfusion defect in the basal to mid inferior wall consistent with infarction with staci-infarct ischemia.
Transient ischemic dilation is present visually and with an elevated ratio of 1.24.
Systolic function is normal. The ejection fraction is 56% with basal to distal inferior/inferoseptal hypokinesis.
Overall, high risk study.
No previous study available for comparison.
Transthoracic Echocardiogram, 12/23/2024:
CONCLUSIONS
Normal left ventricular systolic function. Left ventricular ejection fraction
is 50-55%.
Basal to mid inferior hypokinesis.
No significant valve disease.
Compared to 12/24/23: inferior hypokinesis is new.
Physical Exam
Vital Signs/Labs
Vital Signs
Temp Pulse Resp BP Pulse Ox
36.4 C 67 18 135/72 97
12/24/24 04:49 12/24/24 04:49 12/24/24 04:49 12/24/24 04:48 12/24/24 04:49
12/22/24 12/23/24 12/24/24
11:59 11:59 11:59
Actual Weight 65.4 kg 65.3 kg
12/24/24 04:53
12/24/24 04:53
PT 12.7 Sec (11.4-14.6) 12/22/24 16:28
INR 0.91 12/22/24 16:28
APTT 103.9 Sec (23.4-35.0) H 12/24/24 04:53
Magnesium 2.2 mg/dl (1.6-2.3) 12/24/24 04:53
Triglycerides 54 mg/dl (10-149) 12/23/24 05:38
LDL Cholesterol, Calc 50 mg/dl 12/23/24 05:38
VLDL Cholesterol, Calc 10 mg/dl (0-30) 12/23/24 05:38
HDL Cholesterol 67 mg/dl 12/23/24 05:38
LAB Results
12/22/24 12/22/24 12/22/24
16:29 20:32 23:40
Troponin I 0.014 0.016 0.018
12/23/24 12/23/24 12/23/24
00:23 05:38 17:45
Troponin I Cancelled 0.021 Cancelled
12/24/24
04:53
Troponin I 0.014
Physical Exam
Constitutional: No acute distress and Comfortable
EENT: Anicteric and Moist mucous membranes
Cardiovascular: Rhythm & rate is regular, Pedal edema is absent, JVD pressure is normal, S1S2 is normal and Murmur/rub/gallop absent
Respiratory: Respiratory effort normal, Lungs clear to auscul., Wheeze Absent, Crackles Absent and Rhonchi Absent
GI: Soft, Distention absent, Flat, Non tender and Normal bowel sounds
Neuro/Psych: AO x 3
Data Reviewed
-
Date of Service: December 24, 2024
Medical Decision Making: Reviewed Test Results, Independent Historian Assessment and Test Interpretation
EKG: Tracing Personally Visualized and interpreted and Report Reviewed by me
Echo: Report Reviewed by me
X-Ray/CT/US/MRI/NUC/PET: Image Personally Visualized and interpreted and Report Reviewed by me
Medical Tests (PFT, Pathology etc): Report Reviewed by me
Labs: Labs Reviewed by me
Old Records: Reviewed
[2024-12-24] MEDS: LOW STRENGTH ASPIRIN 81 MG PO (06:52)
--- NOTE | 2024-12-24 08:04 | ITS.CL.CATH ---
Bone Tender - Catheterization
Cardiac Catheterization
Procedure Report:
CARDIAC CATHETERIZATION REPORT
Date of Procedure: 12/24/2024
Referring: Adam Thomas M.D.
INDICATION: Chest pain, high risk stress test, known coronary artery disease status post CABG.
PROCEDURE:
1. Left heart catheterization.
2. Coronary angiography.
3. Bypass angiography.
A total of 16 minutes of procedural/moderate sedation was utilized. An independent medical clerk was present to assist with and help manage the patient's level of consciousness and physiologic status.
ACCESS:
1. 6 [place] left radial artery using modified Seldinger technique.
CATHETERS:
1. 5 [place] OMI.
2. 5 [place] JR4.
3. 5 [place] JL 3.5.
HEMODYNAMIC DATA
Weight (kg): 64.9
AO (s/d/x, mmHg): 136/59/91
LV (s/x mmHg): 137/12 (A wave to 24)
LEFT VENTRICULOGRAPHY: Not performed.
CORONARY ANGIOGRAPHY
Dominance: Right.
Left Main: Normal size, trifurcating vessel. There is a 50-60% lesion at the distal margin.
LAD: Small size vessel giving rise to several small diagonals. The vessel is diffusely diseased and chronically occluded in its midportion. The distal vessel is supplied by patent SIFUENTES graft. There is a 30-40%, smooth lesion in the LAD
immediately distal to the SIFUENTES anastomosis.
Ramus: Small to medium size vessel that is chronically totally occluded at its origin. The vessel supplied by patent vein graft. Collaterals are visible to the dRCA.
Circumflex: Relatively small, nondominant vessel giving rise to 1 small obtuse marginal before terminating as a left posterolateral branch. There is an 80% lesion in the ostium of the vessel. The proximal vessel is diffusely diseased with a 90%
lesion in the proximal circumflex immediately proximal to the origin of the first obtuse marginal. The diameter of the vessel is approximately 1.5 mm.
RCA: Small size, dominant vessel that is chronically totally occluded in its midportion. The distal vessel is supplied by collaterals from the LAD/RI.
BYPASS GRAFT ANGIOGRAPHY
SIFUENTES to LAD: Normal size graft with end-to-side anastomosis to the distal LAD. There is no evidence of stenosis or graft degeneration.
SVG to RI: Normal size graft with end-to-side anastomosis to the mid ramus. There is no evidence of stenosis or graft degeneration.
INTERVENTION(S)
None.
Closure Device: Vascular band.
Radiation (mGy): 237.70
DAP (cm2.Gy): 16.3603
Fluoroscopy time (minutes): 6.9
CONCLUSIONS
1. Right dominant circulation with severe diffuse coronary artery disease status post two-vessel bypass. There is a 50-60% lesion in the distal margin of the left main coronary artery, a chronic total occlusion of the RCA, ostial ramus and the mid
LAD, an 80% lesion in the ostium of the small circumflex followed by diffusely diseased proximal circumflex, needing and 90% lesion proximal to the origin of OM1 with a patent SIFUENTES to LAD revealing a smooth 30-40% distal LAD lesion after the SIFUENTES
anastomosis and a patent SVG to ramus intermedius.
2. Normal filling pressures (LVEDP = 12 mmHg at 64.9 kg) with evidence of diastolic dysfunction (A wave to 24 mmHg).
RECOMMENDATIONS:
1. Expectant management after cardiac catheterization via left radial approach.
2. Limited weight bearing on the left wrist for one week.
3. Given the severe, diffuse nature of the left main and circumflex coronary disease and the relatively small vessels combined with the potential for compromise of remaining LAD circulation, the decision was made to opt for medical management,
beginning with isosorbide mononitrate.
4. If the patient were to completely fail medical management, we could consider an extremely high risk PCI of the circumflex back into the left main, though there is significant concern for vessel mismatch and we would be jailing the LAD which
still contains a significant amount of septal perfusion in spite of its mid vessel SKIP TENDER.
5. Maintain aggressive secondary prevention with high-dose, high potency statin. Her LDL is at goal.
6. OMT/GDMT as hemodynamics will tolerate.
Copy to: Carol Garcia M.D., Miguel Handy D.O., Kris Manzo M.D.
Jefferosn Melendez DO, FACC, FACP
--- NOTE | 2024-12-24 08:47 | PTCARENOTE ---
received patient this am , she was in the laboratory development technician, patient returned from laboratory development technician with left R band intact, distal pulse palpable, monitor shows NSR, VSS. IVF @ 98cc/hr as ordered. patient has her own insulin pump, worksheet at bedside.
--- NOTE | 2024-12-24 08:52 | PN.DE.MGMTRT ---
Insulin Management
- -
12/24/2024 Diabetes Management Consult Follow up - Patient with insulin pump
Patient admitted 12/22 after failed stress test @ [facility], c/o chest pain. PMH CAD, CHF, COPD, diabetes. Prior to admission was using OmniPod 5 with DexCom insulin pump.
Patient is awake alert and oriented resting in bed able to discuss diabetes management. History of diabetes 47 years, sees Dr. Maikol mcgill @ [facility]. Patient is able to continue to use pump while inpatient, in auto mode.
Glucose range 110 to 170, will make no change to pump settings.
Pump settings:
Basal .6 for 24 hours, 14.4 units total
I:CHO ratio 8.7
Sensitivity 50
Active insulin 4.5 hours.
Discussed with nurse
Will follow
Diabetes History
- -
Type of Diabetes: 1
Pre-Admission Diabetes Regimen
12/24/24
04:53
Creatinine 0.8
Lab Results
Hemoglobin A1c 7.8 % (4.0-5.6) H 12/22/24 16:28
Insulin Pump Settings
IP Diabetes Regimen
12/23/24 12/23/24 12/23/24
12:45 18:10 21:11
Glucose
POC Glucose 132 H 110 H 170 H
12/24/24
04:53
Glucose 115 H
POC Glucose
Meal type: Breakfast
Patient Education
[2024-12-24] MEDS: IMDUR (EXTENDED RELEASE) 30 MG PO (09:01)
[2024-12-24] MEDS: PROTONIX 40 MG PO (09:01)
[2024-12-24] MEDS: NEURONTIN 300 MG PO (09:01)
[2024-12-24] MEDS: THERAGRAN 1 TABLET PO (09:01)
[2024-12-24] MEDS: PT'S OWN INSULIN PUMP - NovoLOG 6 UNIT SC (10:10)
--- NOTE | 2024-12-24 11:09 | CM ---
Addendum entered by CLIFF Matthews 12/24/24 14:29:
Antic. pt. for DC to home today.
Met w/ patient, family members at bedside. Plan is for home. Declined VN.
Original Note:
CM following for DC planning needs.
Met w/ patient at bedside.
Pt. feels well post-cath.
DC goal remains for home without needs.
Will follow.
--- NOTE | 2024-12-24 11:34 | PTCARENOTE ---
patient called out c/o light headiness, BP 90/50, informed patient that she was not allowed to get OOB at this time. left R band removed as per protocol, distal pulse palpable.
[2024-12-24] MEDS: TYLENOL 325 MG PO (12:33)
--- NOTE | 2024-12-24 12:33 | PTCARENOTE ---
patient c/o frontal headache, Tylenol po given as ordered.
[2024-12-24] MEDS: PT'S OWN INSULIN PUMP - NovoLOG SC (12:34)
--- NOTE | 2024-12-24 14:43 | W.PN.HOSP.TC ---
Today's Communication/Plan
-
Discharge today
Assessment / Plan
Assessment / Plan
Physical Exam
General: Well Developed, Well Nourished and No Apparent Distress
HEENT: Normocephalic, Moist mucous membranes and Atraumatic
Respiratory: Clear to Auscultation Bilaterally
Cardiac: S1/S2 and Regular Rhythm
GI: Soft, Non Tender, Non Distended and Normal Bowel Sounds
Musculoskeletal: No Cyanosis and No Edema
Skin: Warm. Dry.
Neuro: Nonfocal/grossly intact
Assessment/Plan
64-year-old female with past medical history of ischemic cardiomyopathy, multivessel CAD status post CABG, type 1 diabetes mellitus, lumbar disc disease status post surgery, peripheral neuropathy, restless leg syndrome, GERD and COPD, presented with
failed stress test earlier this afternoon. She developed chest pressure with radiation up to her neck and required medication to reverse the vasodilator. Sent to the emergency room to be admitted for plans for cardiac catheterization. She was
getting chest pressure with exertion few times over the past several months which prompted stress test. She previously stopped beta-daphne due to hypotension restarted a few months ago. Reported to continue to have low blood pressure occasionally
with beta-daphne. Denied smoking. Rarely drinks alcohol. Patient has insulin pump. Continue.
# Stable angina
# History of multivessel CAD s/p CABG [address] Manzo
# Known nonrevascularized RCA
# Right dominant circulation with severe diffuse coronary artery disease status post two-vessel bypass
- Patient failed stress test 12/22/24 and started on heparin drip
- Continue aspirin
- HbA1c 7.8% and lipid panel LDL 50
- Cardiac cath took place on 12/24/24, no interventions, found to have severe, diffuse nature of the left main and circumflex coronary disease and the relatively small vessels combined with the potential for compromise of
remaining LAD circulation
- Per cardiology, medical management with: 1) Aspirin 81 mg daily; 2) Toprol XL 12.5 mg PO HS; 3) Rosuvastatin 40 mg PO QPM; 4) and Imdur ER 30 mg daily; 5) No DUAL antiplatelet therapy
- If the patient were to completely fail medical management, then could consider an extremely high risk PCI of the circumflex back into the left main, though there is significant concern for vessel mismatch and workforce management coordinator would
be jailing the LAD which still contains a significant amount of septal perfusion in spite of its mid vessel FISCAL ASSISTANT.
- Limited weight bearing on the left wrist for one week.
- Echo with normal left ventricular systolic function; left ventricular ejection fraction 50-55%; basal to mid inferior hypokinesis (which is new); no significant valve disease.
- Cardiology consulted
- I communicated (via [facility]) on 12/24/[address] Jefferson Melendez, workforce management coordinator, and mentioned that it is okay to discharge the patient on the above medical regimen
Ischemic cardiomyopathy
- Continue lisinopril
Type 1 diabetes
- On insulin pump
- Appreciate Diabetes ROUNDER AND BACKER
Lumbar disc disease status post surgery
Peripheral neuropathy
- Continue gabapentin
Restless leg syndrome
GERD
- Continue Protonix
COPD
Code Status: Full code
DVT Prophylaxis: SCDs. Lovenox.
More than 30 minutes spent in discharge including
Final examination of the patient
Summarizing hospital stay
Instructions for continuing care to all relevant caregivers
Preparation of discharge records, prescriptions, and referral forms
Total time spent (in minutes): 35
Anticipated Discharge: Today
Subjective/Interval History
-
Date of Service: December 24, 2024
Patient was seen and examined after her cardiac cath procedure. She reported feeling, denied any chest pain or any other symptoms/complaints.
Objective Data
-
Labs:
Laboratory Results
12/24/24
04:53
WBC 6.3
Hgb 11.7 L
Hct 35.4 L
Plt Count 200
APTT 103.9 H
Sodium 140
Potassium 3.7
Chloride 110 H
Carbon Dioxide 26
BUN 26 H
Creatinine 0.8
Glucose 115 H
Calcium 9.7
Total Bilirubin 0.5
AST 31
ALT 24
Alkaline Phosphatase 67
Vital Signs:
Vital Signs
Temp Pulse Resp BP Pulse Ox
98.2 F 72 20 109/52 94
12/24/24 11:47 12/24/24 10:00 12/24/24 11:47 12/24/24 10:00 12/24/24 11:47
--- NOTE | 2024-12-24 16:49 | PTCARENOTE ---
D/C instructions given to patient and family, both verbalizes understanding. INT D/C'd, telemetry d/C'd, personal belongings packed and sent home with patient. D/C to home via wc accompanied by [facility] services.
== END 2024-12-24 16:53 | disposition home or self-care (01) | DRG 287 ==
LOC: IVU 17:25
PROVIDERS: Internal Medicine Cardiovascular Disease; Nurse Practitioner Gerontology; Student in an Organized Health Care Education/Training Program; ADMITTING PHYSICIAN Hospitalist; ATTENDING PHYSICIAN Hospitalist; EMERGENCY PHYSICIAN Emergency Medicine; FAMILY PHYSICIAN Family Medicine; OTHER PHYSICIAN Internal Medicine
PROC: B2111ZZ Fluoroscopy of Multiple Coronary Arteries using Low Osmolar Contrast (ICD-10-PCS; 2024-12-24)
PROC: 4A023N7 Measurement of Cardiac Sampling and Pressure, Left Heart, Percutaneous Approach (ICD-10-PCS; 2024-12-24)
PROC: B2121ZZ Fluoroscopy of Single Coronary Artery Bypass Graft using Low Osmolar Contrast (ICD-10-PCS; 2024-12-24)
PROC: B2151ZZ Fluoroscopy of Left Heart using Low Osmolar Contrast (ICD-10-PCS; 2024-12-24)
DX: I25.110 Atherosclerotic heart disease of native coronary artery with unstable angina pectoris (principal); Z79.4 Long term (current) use of insulin; Z96.41 Presence of insulin pump (external) (internal); Z95.1 Presence of aortocoronary bypass graft; I25.5 Ischemic cardiomyopathy; G25.81 Restless legs syndrome; K21.9 Gastro-esophageal reflux disease without esophagitis; J44.9 Chronic obstructive pulmonary disease, unspecified; I11.0 Hypertensive heart disease with heart failure; I50.9 Heart failure, unspecified; E78.5 Hyperlipidemia, unspecified; E10.42 Type 1 diabetes mellitus with diabetic polyneuropathy; Z79.899 Other long term (current) drug therapy; Z79.82 Long term (current) use of aspirin; Z79.02 Long term (current) use of antithrombotics/antiplatelets; I25.82 Chronic total occlusion of coronary artery; Z60.2 Problems related to living alone
CPT/HCPCS: 78452; 80053; 80061; 82962; 83036; 83735; 84484; 85025; 85027; 85610; 85730; 93005; 93017; 93306; 93459; 96365; 96366; 97162; 99152; 99291; A9500; C1894; Q9967

== ENCOUNTER 2025-02-01 16:35 | Emergency (ER) | payer MEDICARE, BC, SELFPAY ==
[2025-02-01 16:41] VITALS: BP 152/58
[2025-02-01 17:06] LABS: % Basophils 0.7 % (0-2); % Eosinophils 1.5 % (0-6); % Immature Granulocytes 0.3 % (0-0.5); % Lymphocytes 24.8 % (20.5-51.1); % Neutrophils 63.7 % (42.2-75.2); Absolute Eosinophils 0.1 10^3/uL (0-0.7); Absolute Lymphocytes 1.5 10^3/uL (1.2-3.4); Absolute Monocytes 0.5 10^3/uL (0.1-0.6); Absolute Neutrophils 3.8 10^3/uL (1.4-6.5); Hematocrit 35.3 % (37.0-47.0); Hemoglobin 11.6 g/dL (12.0-16.0); Mean Corp Hgb Conc. 32.9 g/dL (33.0-37.0); Mean Corpuscular Hgb 29.5 pg (27.0-31.0); Mean Corpuscular Volume 89.8 fL (81.0-99.0); Mean Platelet Volume 9.8 fL (7.4-10.4); Nucleated Red Blood Cells % 0 %; Platelet Count 219 10^3/uL (130-400); Red Blood Cell Count 3.93 10^6/uL (4.20-5.40); Red Cell Dist. Width 12.8 % (11.5-14.5)
[2025-02-01 17:27] LABS: ALT (SGPT) 30 U/L (0-35); AST (SGOT) 40 U/L (14-36); Albumin 3.7 g/dl (3.5-5.0); Alkaline Phosphatase 80 U/L (38-126); Blood Urea Nitrogen 18 mg/dl (7-17); Calcium 9.7 mg/dl (8.4-10.2); Carbon Dioxide 28 mmol/L (22-30); Chloride 106 mmol/L (98-107); Glucose 229 mg/dl (70-99); Potassium 4.5 mmol/L (3.5-5.1); Sodium 139 mmol/L (135-145); Total Bilirubin 0.6 mg/dl (0.2-1.3); Total Protein 6.7 g/dl (6.3-8.2); eGFR > 60.00
[2025-02-01 17:29] LABS: Troponin I < 0.012 ng/ml
[2025-02-01 17:37] VITALS: BP 143/57
[2025-02-01 18:00] VITALS: BP 143/51
[2025-02-01 18:17] VITALS: BP 143/51; BMI 20.4
--- NOTE | 2025-02-01 18:35 | ED.GENMED ---
History of Present Illness
<Roxie Whitfield PA-C - Last Filed: 02/04/25 10:27>
General
Chief Complaint: Chest Pain
Source: patient
Exam Limitations: none
Time Seen by Provider: 02/01/25 17:54
Nursing documentation reviewed up to this point in time: agreed with
History of Present Illness
History of Present Illness:
65 y/o F with h/o double bypass 4 years ago, CHF no longer on lasix, ef recovered, snf IDDM
failed stress test in december and had cath showing multivesel disease;
they recommended medical management with isosorbide mononitrate which the patient didn't really tolerate becuase it dropped her BP to where she needed midodrine; (jonathan is her primary derrick builder)
she saw a CHF specialist at [facility] who said she could take midodrine with the isosorbide but she hasn't done that; started cardiac rehab to see if she can increase her stamina and apparently only 4 min in on the treadmill today had chest pressure into
neck with nauesa and EKG changes; so they stopped; she took 2 SL and pain resolved;but she still had some residual nausea for [address] beaulieu sent her to the ER
pt has no chest pain or nausea, no sob
and she wants to go home
no fever, chills, leg swelling, syncope
Past History
<Roxie Whitfield PA-C - Last Filed: 02/04/25 10:27>
Past History
ED Past Medical History: CAD, CHF, COPD and IDDM
ED Past Surgical History: Appendectomy and Cardiac
Social History
Tobacco: Non-smoker
Alcohol: None
Drug: None
Personal:
Living: alone
Review of Systems
<Roxie Whitfield PA-C - Last Filed: 02/04/25 10:27>
Review of Systems
Allergies reviewed?: Yes
All Other Systems: Not applicable
Phy Exam
<Roxie Whitfield PA-C - Last Filed: 02/04/25 10:27>
Physical Exam
Physical Exam:
GENERAL: Alert , in no apparent distress, well appearing
EYE: pupils equal and reactive
NECK: Supple
ENT: o/p clr, mmm.
CARDIAC: Regular rate and rhythm .
LUNGS: Clear breath sounds bilaterally, no acute respiratory distress, no wheezes/rales/rhonchi
ABDOMEN: Soft, without focal tenderness, no r/g, no cvat, normal bowel sounds
NEUROLOGICAL: Alert and oriented, no focal neuro deficits
SKIN: Warm and dry, skin intact.PVD skin chnages b/l LE
MUSCULOSKELETAL: minimal symmetric pretibial edema, well perfused. pvd skin changeds neg marcelina's sign
PSYCH: Normal and appropriate interaction.
Scores
<Evy Mosher PA-C - Last Filed: 02/01/25 23:35>
Heart Score for Chest Pain Patients
STEMI patient?: Not applicable
Course
<Roxie Whitfield PA-C - Last Filed: 02/04/25 10:27>
Orders/Labs/Results
Orders:
Orders
02/01/25
Electrocardiogram (*1) Stat
Reason for Study: Chest Pain
02/01/25 16:36
Electrocardiogram (*1) Urgent
Reason for Study: Chest Pain
EKG- Treatment ONCE
02/01/25 16:57
Complete Blood Count/With Diff Urgent
Comprehensive Metabolic Panel Urgent
Troponin I Urgent
02/01/25 18:49
EKG- Treatment ONCE
02/01/25 19:45
Electrocardiogram (*1) Urgent
Reason for Study: Chest Pain
02/01/25 20:00
Troponin I Urgent
Abnormal Lab Results
02/01/25
16:57
RBC 3.93 L 10^6/uL
(4.20-5.40)
Hgb 11.6 L g/dL
(12.0-16.0)
Hct 35.3 L %
(37.0-47.0)
MCHC 32.9 L g/dL
(33.0-37.0)
BUN 18 H mg/dl
(7-17)
Glucose 229 H mg/dl
(70-99)
AST 40 H U/L
(14-36)
02/01/25 16:57
02/01/25 16:57
Vital Signs
Initial and Last Documented VS:
Initial Vital Signs
Temp Pulse Resp BP Pulse Ox
36.9 C 63 16 152/58 100
02/01/25 16:41 02/01/25 16:41 02/01/25 16:41 02/01/25 16:41 02/01/25 16:41
Last Documented Vital Signs
Temp Pulse Resp BP Pulse Ox
36.4 C 61 12 151/57 100
02/01/25 18:17 02/01/25 21:30 02/01/25 21:30 02/01/25 20:05 02/01/25 21:30
[place];Evy Mosher PA-C - Last Filed: 02/01/25 23:35>
Orders/Labs/Results
Orders:
Orders
02/01/25
Electrocardiogram (*1) Stat
Reason for Study: Chest Pain
02/01/25 16:36
Electrocardiogram (*1) Urgent
Reason for Study: Chest Pain
EKG- Treatment ONCE
02/01/25 16:57
Complete Blood Count/With Diff Urgent
Comprehensive Metabolic Panel Urgent
Troponin I Urgent
02/01/25 18:49
EKG- Treatment ONCE
02/01/25 19:45
Electrocardiogram (*1) Urgent
Reason for Study: Chest Pain
02/01/25 20:00
Troponin I Urgent
Abnormal Lab Results
02/01/25
16:57
RBC 3.93 L 10^6/uL
(4.20-5.40)
Hgb 11.6 L g/dL
(12.0-16.0)
Hct 35.3 L %
(37.0-47.0)
MCHC 32.9 L g/dL
(33.0-37.0)
BUN 18 H mg/dl
(7-17)
Glucose 229 H mg/dl
(70-99)
AST 40 H U/L
(14-36)
02/01/25 16:57
02/01/25 16:57
Vital Signs
Initial and Last Documented VS:
Initial Vital Signs
Temp Pulse Resp BP Pulse Ox
36.9 C 63 16 152/58 100
02/01/25 16:41 02/01/25 16:41 02/01/25 16:41 02/01/25 16:41 02/01/25 16:41
Last Documented Vital Signs
Temp Pulse Resp BP Pulse Ox
36.4 C 61 12 151/57 100
02/01/25 18:17 02/01/25 21:30 02/01/25 21:30 02/01/25 20:05 02/01/25 21:30
<Roxie Whitfield PA-C - Last Filed: 02/04/25 10:27>
MDM/Problems Addressed
Differential Diagnosis Includes:
angina, acs
MDM/Problems Addressed:
65 y/o F
CAD, bypass 4 yeras ago
here after having exertional CP while on treadmill today on first day of cardiac rehab
pt has long history and complex cath from 12/2024
shewas to be medically managed with isosoribde mononitrate but didn't tolerate it berfore
so her specialist at [facility] dr. hollis recommended she try rehab to work her way up to exercise but would consider restarting isosorbide with midodrine if necessary
pt had her frist appt today and got cp with EKG changes at 4 min
took 2 SL and pain resolved
she feels fine now and is insistent she will be going home
is willing to stay for 2nd trop
exam is unremarakble
i spoke with dr. lizarraga control room agent for [facility] who recommended pt stay overnight and start isosorbide dinitrate 10 mg bid and midodrine 2.5 mg BID
he said if we are starting meds, we should keep her to sure she tolerates
pt is aware of this but would rather go home and will reach out to dr. hollis from [facility] tomorrow
<Roxie Whitfield PA-C - Last Filed: 02/04/25 10:27>
*Pulse Oximetry
SaO2: 98
Oxygen Mode of Delivery: Room air
<Evy Mosher PA-C - Last Filed: 02/01/25 23:35>
*Pulse Oximetry
Patient hypoxic: no (100%)
*Critical Care Note
Total Time (30-74mins, 75-104mins- exclusive of procedures): Not Applicable
<Evy Mosher PA-C - Last Filed: 02/01/25 23:35>
Update Note
Update Note:
I assumed care of patient awaiting repeat troponin results. Second troponin remains undetectable. She is asymptomatic and chest pain-free on reassessment. Patient continues to decline admission although she assures me she will call her
derrick builder tomorrow. ED return precautions reviewed.
ED Attending Note
<Roxie Whitfield PA-C - Last Filed: 02/04/25 10:27>
-
Portions of this chart may have been created with voice recognition software.� Occasional wrong word or��sound alike� substitutions may have occurred due to the inherent limitations of voice recognition software.
Discharge Plan
Departure
Patient Disposition: Home (Routine Discharge)
Date of Disposition: 02/01/25
Time of Disposition: 21:11
Patient with high blood pressure during this ER visit?: Yes
Condition: Fair
Covid-19: Not Applicable
Discharge Problem:
Angina pectoris
Instructions: Chest Pain CBC Follow Up
Prescriptions:
New
isosorbide dinitrate 10 mg tablet
10 mg PO BID Qty: 30 0RF
No Action
insulin glargine [Lantus U-100 Insulin] 1,000 UNITS/10 ML solution
16 units SC .DAILYINAM
Patient Comments:
ONLY TAKES BACK UP IF INSULIN PUMP FAILS
insulin aspart U-100 [Novolog U-100 Insulin aspart] 1,000 UNITS/10 ML solution
SC TID
Patient Comments:
INSULIN PUMP
aspirin 81 MG tablet,chewable
81 mg PO DAILY
omega 5-axd-nxa-fish oil [Fish Oil] 1 EACH capsule
1 ea PO DAILY
Multi For Her 1 EACH capsule
1 tab PO DAILY
pantoprazole 40 MG tablet,delayed release (DR/EC)
40 mg PO DAILY Qty: 30 1RF
furosemide 20 MG tablet
20 mg PO DAILY PRN (Reason: weight gain or SOB) Qty: 30 1RF
nitroglycerin 0.4 MG tablet, sublingual
0.4 mg sublingual [id number] PRN (Reason: sob, chest pain) Qty: 25 1RF
acetaminophen [Tylenol] 325 mg Tablet
325 mg PO Q4H PRN (Reason: pain)
tramadol 50 mg Tablet
50 mg PO DAILY PRN (Reason: pain)
midodrine 2.5 mg Tablet
2.5 mg PO ONCE PRN (Reason: low bp)
rosuvastatin 40 mg Tablet
40 mg PO DAILY
metoprolol succinate 12.5 MG tablet extended release 24 hr
12.5 mg PO HS
isosorbide mononitrate 30 mg Tablet Extended Release 24 Hr
30 mg PO DAILY Qty: 30 1RF
gabapentin 100 MG capsule
300 mg PO BID Qty: 0 0RF
Referrals:
Ellen Alejandra CRNP [Family Provider]
Activity Restrictions/Additional Instructions:
Dr. lizarraga from cardiology control room agent for dr. Garcia had recommended that you start isosorbide dinitrate 10 mg twice a day along with midodrine 2-1/2 mg twice a day. You can speak with your Dr. Hollis regarding this plan. We had recommended that
he stay in the hospital overnight for observation but you prefer to go home. Please return
For any worsening chest discomfort, especially discomfort that does not resolve with the sublingual nitroglycerin or is more significant
Interventions
Interventions:
*Risk Screen - Suicide Last Done: 02/01/25 16:44
*General Assessment Last Done: 02/01/25 17:40
*Neglect/Abuse Screening Last Done: 02/01/25 16:44
*ED- Fall Risk Assessment Last Done: 02/01/25 17:40
*ED COVID-19 Vaccine History Last Done: 02/01/25 17:40
*Nursing Disposition Last Done: 02/01/25 21:43
ED- Cardiac Assessment Last Done: 02/01/25 18:17
Discharge Date and Time
Discharge Date/Time: 02/01/25 21:49
Print Language: BURKINAN
[2025-02-01 19:00] VITALS: BP 152/56
[2025-02-01 20:05] VITALS: BP 151/57
[2025-02-01 20:33] LABS: Troponin I < 0.012 ng/ml
== END 2025-02-01 21:49 | disposition home or self-care (01) ==
LOC: EMR 16:35
PROVIDERS: Emergency Medicine; Physician Assistant; EMERGENCY PHYSICIAN Student in an Organized Health Care Education/Training Program; FAMILY PHYSICIAN Nurse Practitioner Adult Health
DX: I25.119 Atherosclerotic heart disease of native coronary artery with unspecified angina pectoris (principal); I50.9 Heart failure, unspecified; J44.9 Chronic obstructive pulmonary disease, unspecified; E11.9 Type 2 diabetes mellitus without complications; Z79.4 Long term (current) use of insulin
CPT/HCPCS: 99284; 80053; 82962; 84484; 85025; 93005; G0422; G0423

== ENCOUNTER 2025-04-02 15:19 | Outpatient (RCR) | payer MEDICARE, BC, SELFPAY ==
[2025-03-24 12:32] LABS: Glucose - Point of Care 172 mg/dl (70-99)
[2025-03-24 13:18] LABS: Glucose - Point of Care 165 mg/dl (70-99)
[2025-03-29 14:59] LABS: Glucose - Point of Care 111 mg/dl (70-99)
[2025-03-29 15:39] LABS: Glucose - Point of Care 113 mg/dl (70-99)
[2025-03-31 14:54] LABS: Glucose - Point of Care 246 mg/dl (70-99)
[2025-03-31 15:37] LABS: Glucose - Point of Care 205 mg/dl (70-99)
[2025-04-02 14:55] LABS: Glucose - Point of Care 198 mg/dl (70-99)
[2025-04-02 15:40] LABS: Glucose - Point of Care 163 mg/dl (70-99)
== END 2025-04-02 23:59 | disposition home or self-care (01) ==
LOC: CRHB 15:19
PROVIDERS: ATTENDING PHYSICIAN Internal Medicine Cardiovascular Disease; FAMILY PHYSICIAN Family Medicine
DX: I25.110 Atherosclerotic heart disease of native coronary artery with unstable angina pectoris (principal); Z95.1 Presence of aortocoronary bypass graft
CPT/HCPCS: 82962; G0422; G0423